=== PATIENT | male | born 1955 | race Caucasian/White ===

== ENCOUNTER 2023-11-18 04:05 | Inpatient (IN) | payer MEDICARE ==
[2023-11-18] MEDS ORDERED: Ipratropium/Albuterol 3 ML NEB ONE ×2 (04:41→06:27)
[2023-11-18] MEDS ORDERED: Magnesium 2 GM/50 ML BAG (IN WATER) ONE (04:42)
[2023-11-18] MEDS ORDERED: cefTRIAXone (ROCEPHIN) 2 GM VIAL ONE (05:31)
[2023-11-18] MEDS ORDERED: Azithromycin 500 MG VIAL ONE (05:31)
[2023-11-18 05:56] LABS: #Basophils 0.02 10x3/uL (0.0-0.2); #Eosinphils 0.03 10x3/uL (0.0-0.5); #Monocytes 0.27 10x3/uL (0.0-1.1); #Neutrophils 7.02 10x3/uL (1.5-8.4); %Basophils 0.3 % (0.0-2.0); %Eosinophils 0.4 % (0.0-6.0); %Lymphocytes 5.5 % (18.0-47.0); %Monocytes 3.5 % (0.0-10.0); %Neutrophils 89.9 % (40.0-75.0); Hematocrit 39.2 % (38.8-50.0); Mean Corpuscular HGB CONC 33.2 g/dL (32.0-36.0); Mean Corpuscular Hemoglobin 30.1 pg (27.0-33.0); Mean Corpuscular Volume 90.7 fL (81.2-95.1); Mean Platelet Volume 9.5 fL (7.4-10.4); Platelet Count 207 10x3/uL (150-450); RBC Distribution Width 15.3 % (11.5-14.5); Red Blood Cell (RBC) Count 4.32 10x6/uL (4.32-5.72); White Blood Cell (WBC) Count 7.8 10x3/uL (3.5-10.5)
[2023-11-18 06:09] LABS: ALT (SGPT) 26 U/L (8-55); AST (SGOT) 20 U/L (5-34); Albumin 3.6 g/dL (3.4-4.8); Alkaline Phosphatase 73 U/L (40-110); Anion Gap 12 mmol/L (10-20); BUN (Urea Nitrogen) 11 mg/dL (8.4-25.7); Bilirubin, Total 0.4 mg/dL (0.2-1.2); Calc. Creatinine Clearance 0 mL/min (70-130); Calcium 9.1 mg/dL (7.8-10.44); Carbon Dioxide 28 mmol/L (23-31); Chloride 99 mmol/L (98-107); Estimated GFR 99; Globulin 3.2 g/dL (2.4-3.5); Glucose 132 mg/dL (80-115); Magnesium 2.4 mg/dL (1.6-2.6); Potassium 4.5 mmol/L (3.5-5.1); Protein, Total 6.8 g/dL (5.8-8.1); Sodium 134 mmol/L (136-145)
[2023-11-18 06:15] LABS: Troponin I Less than 0.010 ng/mL (< 0.028)
[2023-11-18] MEDS ORDERED: Morphine 4 MG/ML VIAL ONE (06:25)
[2023-11-18] MEDS ORDERED: Ondansetron ODT 4 MG TAB PO PRN (07:30)
[2023-11-18] MEDS ORDERED: Acetaminophen 650 MG Suppository PR PRN (07:30)
[2023-11-18] MEDS ORDERED: Acetaminophen 325 MG TAB PO PRN (07:30)
[2023-11-18] MEDS: Ipratropium/Albuterol 3 ML NEB NEB SCH ×2 (10:09→18:40)
[2023-11-18 10:52] VITALS: BMI 29.4
[2023-11-18] MEDS: methylPREDNISolone Sod Succ 40 MG VIAL IVP SCH (12:00)
[2023-11-18] MEDS ORDERED: Iopamidol 370 76% 100 ML VIAL ONE (12:14)
[2023-11-18] MEDS: HYDROcodone/Acetaminophen 7.5/325 mg Tablet PO PRN (16:01)
[2023-11-18] MEDS ORDERED: Mometasone 100 MCG/PUFF (1 INHALER) INH SCH (18:30)
[2023-11-18] MEDS: rOPINIRole HCl 1 MG TAB PO SCH (21:01)
[2023-11-18] MEDS: Atorvastatin Calcium 40 MG TAB PO SCH (21:01)
[2023-11-19 04:59] LABS: #Basophils 0.01 10x3/uL (0.0-0.2); #Eosinphils 0.19 10x3/uL (0.0-0.5); #Monocytes 0.52 10x3/uL (0.0-1.1); #Neutrophils 8.95 10x3/uL (1.5-8.4); %Basophils 0.1 % (0.0-2.0); %Eosinophils 1.9 % (0.0-6.0); %Lymphocytes 4.2 % (18.0-47.0); %Monocytes 5.1 % (0.0-10.0); %Neutrophils 88.5 % (40.0-75.0); Hematocrit 36.6 % (38.8-50.0); Mean Corpuscular HGB CONC 32.8 g/dL (32.0-36.0); Mean Corpuscular Hemoglobin 29.7 pg (27.0-33.0); Mean Corpuscular Volume 90.6 fL (81.2-95.1); Mean Platelet Volume 9.8 fL (7.4-10.4); Platelet Count 203 10x3/uL (150-450); RBC Distribution Width 15.2 % (11.5-14.5); Red Blood Cell (RBC) Count 4.04 10x6/uL (4.32-5.72); White Blood Cell (WBC) Count 10.1 10x3/uL (3.5-10.5)
[2023-11-19 05:14] LABS: Anion Gap 13 mmol/L (10-20); BUN (Urea Nitrogen) 13 mg/dL (8.4-25.7); Calc. Creatinine Clearance 119 mL/min (70-130); Calcium 9.1 mg/dL (7.8-10.44); Carbon Dioxide 28 mmol/L (23-31); Chloride 98 mmol/L (98-107); Estimated GFR 97; Glucose 154 mg/dL (80-115); Potassium 4.4 mmol/L (3.5-5.1); Sodium 135 mmol/L (136-145)
[2023-11-19] MEDS: cefTRIAXone\\ROCEPHIN 1 GM in Sodium Chloride 0.9% 100 ML IVPB SCH (05:46)
[2023-11-19] MEDS: Azithromycin 500 MG in Sodium Chloride 0.9% 250 ML 250 ML IVPB SCH (06:44)
[2023-11-19] MEDS: Finasteride 5 MG TAB PO SCH (09:13)
[2023-11-19] MEDS: Aspirin 81 mg Enteric Coated Tablet PO SCH (09:13)
[2023-11-19] MEDS: Amlodipine 5 MG TAB PO SCH (09:13)
[2023-11-19] MEDS: Terazosin HCl 5 MG CAP PO SCH (09:13)
[2023-11-19] MEDS: Ipratropium/Albuterol 3 ML NEB NEB SCH (15:01)
[2023-11-19] MEDS: Famotidine 20 MG TAB PO SCH (21:44)
[2023-11-19] MEDS: Enoxaparin 40 MG (0.4 mL) SYRINGE SC SCH (21:44)
[2023-11-19] MEDS: Budesonide 0.5 MG/2 ML NEB ONE (22:10)
[2023-11-19] MEDS: Arformoterol 15 MCG/2 ML NEB NEB SCH (22:10)
[2023-11-19] MEDS: guaiFENesin ER 600 MG TAB PO SCH (22:50)
[2023-11-19] MEDS: Budesonide 0.5 MG/2 ML NEB INH SCH (23:00)
[2023-11-20 05:21] LABS: #Basophils 0.01 10x3/uL (0.0-0.2); #Monocytes 0.67 10x3/uL (0.0-1.1); #Neutrophils 12.08 10x3/uL (1.5-8.4); %Basophils 0.1 % (0.0-2.0); %Lymphocytes 4.5 % (18.0-47.0); Hemoglobin 12.2 g/dL (13.5-17.5); Mean Corpuscular HGB CONC 33.9 g/dL (32.0-36.0); Mean Corpuscular Hemoglobin 30.7 pg (27.0-33.0); Mean Corpuscular Volume 90.5 fL (81.2-95.1); Mean Platelet Volume 10.1 fL (7.4-10.4); Platelet Count 228 10x3/uL (150-450); RBC Distribution Width 15.3 % (11.5-14.5); Red Blood Cell (RBC) Count 3.98 10x6/uL (4.32-5.72); White Blood Cell (WBC) Count 13.4 10x3/uL (3.5-10.5)
[2023-11-20 05:34] LABS: Anion Gap 14 mmol/L (10-20); BUN (Urea Nitrogen) 16 mg/dL (8.4-25.7); Calc. Creatinine Clearance 119 mL/min (70-130); Carbon Dioxide 29 mmol/L (23-31); Chloride 100 mmol/L (98-107); Estimated GFR 97; Glucose 131 mg/dL (80-115); Potassium 4.7 mmol/L (3.5-5.1); Sodium 138 mmol/L (136-145)
[2023-11-20] MEDS: Arformoterol 15 MCG/2 ML NEB NEB SCH (07:12)
[2023-11-20] MEDS: Budesonide 0.5 MG/2 ML NEB INH SCH (07:14)
[2023-11-20] MEDS: guaiFENesin ER 600 MG TAB PO SCH (08:55)
[2023-11-20] MEDS ORDERED: Polyethylene Glycol 3350 17 GM Packet PO PRN (14:40)
[2023-11-20] MEDS: Simethicone Chewable 80 MG TAB PO SCH (21:39)
[2023-11-20] MEDS: methylPREDNISolone Sod Succ 40 MG VIAL IVP SCH (21:40)
[2023-11-21] MEDS: Albuterol 2.5 MG (3 mL) NEB NEB PRN (03:25)
[2023-11-21 05:00] LABS: #Basophils 0.01 10x3/uL (0.0-0.2); #Monocytes 0.57 10x3/uL (0.0-1.1); #Neutrophils 10.36 10x3/uL (1.5-8.4); %Basophils 0.1 % (0.0-2.0); %Lymphocytes 4.2 % (18.0-47.0); %Monocytes 4.9 % (0.0-10.0); %Neutrophils 89.9 % (40.0-75.0); Hematocrit 37.9 % (38.8-50.0); Hemoglobin 12.8 g/dL (13.5-17.5); Mean Corpuscular HGB CONC 33.8 g/dL (32.0-36.0); Mean Corpuscular Hemoglobin 30.7 pg (27.0-33.0); Mean Corpuscular Volume 90.9 fL (81.2-95.1); Mean Platelet Volume 9.4 fL (7.4-10.4); Platelet Count 237 10x3/uL (150-450); RBC Distribution Width 15.4 % (11.5-14.5); Red Blood Cell (RBC) Count 4.17 10x6/uL (4.32-5.72); White Blood Cell (WBC) Count 11.5 10x3/uL (3.5-10.5)
[2023-11-21 05:04] LABS: Anion Gap 15 mmol/L (10-20); BUN (Urea Nitrogen) 16 mg/dL (8.4-25.7); Calc. Creatinine Clearance 124 mL/min (70-130); Carbon Dioxide 29 mmol/L (23-31); Chloride 97 mmol/L (98-107); Estimated GFR 99; Glucose 137 mg/dL (80-115); Potassium 4.7 mmol/L (3.5-5.1); Sodium 136 mmol/L (136-145)
[2023-11-22 07:22] LABS: #Basophils 0.01 10x3/uL (0.0-0.2); #Monocytes 0.63 10x3/uL (0.0-1.1); %Basophils 0.1 % (0.0-2.0); %Lymphocytes 5.5 % (18.0-47.0); %Monocytes 6.7 % (0.0-10.0); %Neutrophils 87.2 % (40.0-75.0); Hematocrit 39.7 % (38.8-50.0); Hemoglobin 13.3 g/dL (13.5-17.5); Mean Corpuscular HGB CONC 33.5 g/dL (32.0-36.0); Mean Corpuscular Hemoglobin 30.2 pg (27.0-33.0); Mean Platelet Volume 9.7 fL (7.4-10.4); Platelet Count 255 10x3/uL (150-450); Red Blood Cell (RBC) Count 4.41 10x6/uL (4.32-5.72); White Blood Cell (WBC) Count 9.4 10x3/uL (3.5-10.5)
[2023-11-22] MEDS: Ondansetron PF 4 MG/2 ML Vial IVP PRN (07:58)
[2023-11-22] MEDS: Simethicone Chewable 80 MG TAB PO PRN (07:58)
[2023-11-22 10:27] LABS: Anion Gap 12 mmol/L (10-20); BUN (Urea Nitrogen) 18 mg/dL (8.4-25.7); Calc. Creatinine Clearance 115 mL/min (70-130); Carbon Dioxide 34 mmol/L (23-31); Chloride 95 mmol/L (98-107); Estimated GFR 96; Glucose 129 mg/dL (80-115); Potassium 4.2 mmol/L (3.5-5.1); Sodium 137 mmol/L (136-145)
[2023-11-24 08:02] VITALS: BP 145/84; TEMP 98.2
== END 2023-11-24 10:45 | disposition home or self-care (01) | DRG 189 ==
LOC: CSHERS 04:05 → CSHTELE 08:05 → OBSVTOIN 21:56
PROVIDERS: ADMIT Internal Medicine; ATTEND Family Medicine
DX: J96.21 Acute and chronic respiratory failure with hypoxia (principal); J44.1 Chronic obstructive pulmonary disease with (acute) exacerbation; J96.22 Acute and chronic respiratory failure with hypercapnia; I10 Essential (primary) hypertension; E78.5 Hyperlipidemia, unspecified; N40.0 Benign prostatic hyperplasia without lower urinary tract symptoms; G89.29 Other chronic pain; M54.9 Dorsalgia, unspecified; K59.00 Constipation, unspecified; Z79.51 Long term (current) use of inhaled steroids; Z79.891 Long term (current) use of opiate analgesic; Z79.82 Long term (current) use of aspirin; Z79.899 Other long term (current) drug therapy
CPT/HCPCS: 36415; 36416; 71045; 71275; 80048; 80053; 83605; 83735; 83880; 84484; 85025; 85379; 87040; 87070; 87205; 93005; 94640; 94760; 94762; 96365; 96375; 96376; G0378; J0456; J0696; J1650; J2270; J2405; J2920; J3475; J3490; J7050; J7611; J7620; J7626; Q9967